=== PATIENT | female | born 1965 | race Caucasian/White ===

== ENCOUNTER 2023-08-21 12:45 | Outpatient (REF) | payer MEDICAID, SELFPAY ==
[2023-08-21 14:48] LABS: Basophils Percent Auto 0.3 % (0-2); Eosinophils Absolute Auto 0.3 X10*3/uL (0.0-0.4); Eosinophils Percent Auto 3.3 % (0-4); Hematocrit 44.5 % (37.0-47.0); Hemoglobin 14.6 g/dl (12.0-16.0); Imm Gran Abs Auto 0.07 X10*3/uL (0.00-0.03); Imm Gran Pct Auto 0.7 % (0.0-0.4); Lymphocytes Absolute Auto 1.3 X10*3/uL (1.2-4.9); Lymphocytes Percent Auto 12.7 % (20-40); MANUAL DIFF FLAG NO; Mean Corpuscular HGB Conc 32.8 g/dl (31.0-35.0); Mean Corpuscular Hemoglobin 28.3 pg (27.0-33.0); Mean Corpuscular Volume 86.4 fL (80.0-98.0); Mean Platelet Volume 10.4 fL (9.4-12.3); Monocytes Absolute Auto 0.5 X10*3/uL (0.1-1.2); Neutrophils Absolute Auto 7.9 x10*3/uL (2.0-8.3); Platelet Count 313 X10*3/uL (160-400); Red Blood Count 5.15 X10*6/uL (4.20-5.50); Red Cell Distribution Width 13.7 % (11.0-16.0); White Blood Count 10.1 X10*3/uL (4.8-10.8)
[2023-08-21 14:53] LABS: Estimated Average Glucose 114 mg/dL; Hemoglobin A1c % 5.6 % (<6.0)
[2023-08-21 15:07] LABS: Alanine Aminotransferase 19 U/L (0-31); Albumin Level 4.4 g/dL (3.5-5.0); Alkaline Phosphatase 67 U/L (39-117); Anion Gap 15 (12-20); Aspartate Amino Transferase 16 U/L (5-31); Bilirubin Total 0.3 mg/dL (0.0-1.0); Blood Urea Nitrogen 18 mg/dL (9-16); Calcium 9.5 mg/dL (8.4-10.2); Carbon Dioxide 24 mmol/L (22-29); Chloride 105 mmol/L (96-108); Cholesterol 247 mg/dL (<200); Estimated Glomerular Filt Rate > 60; Glucose Random 138 mg/dL (60-115); HDL Cholesterol 50 mg/dL (>40); LDL Cholesterol Calculated 176 mg/dL (<100); Potassium 4.1 mmol/L (3.3-5.1); Sodium 140 mmol/L (135-145); Total Protein 9.2 g/dL (6.5-8.0); Triglycerides 105 mg/dL (<150)
[2023-08-21 15:37] LABS: Folate 7.1 ng/mL (> or = 4.0); Vitamin B12 539 pg/mL (200-900)
== END 2023-08-21 12:46 | disposition home or self-care (01) ==
LOC: HO.CHCLDS 12:45
PROVIDERS: Visit Provider Pediatrics
DX: N93.9 Abnormal uterine and vaginal bleeding, unspecified (principal); E66.01 Morbid (severe) obesity due to excess calories; I10 Essential (primary) hypertension
CPT/HCPCS: 36415; 80053; 80061; 82550; 82607; 82746; 83036; 84443; 85025